=== PATIENT | male | born 1950 | race Caucasian/White ===

== ENCOUNTER 2020-12-31 14:11 | Outpatient (CLI) | payer MEDICARE, OTHER | END 2020-12-31 14:12 | disposition home or self-care (01) | LOC: COV 14:11 | PROVIDERS: ATTEND Family Medicine | DX: Z20.822 Contact with and (suspected) exposure to COVID-19 (principal) ==

== ENCOUNTER 2021-09-05 10:18 | Emergency (ER) | payer MEDICARE ==
[2021-09-05 11:36] LABS: BASOPHILS # (AUTO) 0.1 10^3/uL (0.0-0.1); BASOPHILS % (AUTO) 0.6 %; EOSINOPHILS # (AUTO) 0.1 10^3/uL (0.0-0.7); EOSINOPHILS % (AUTO) 1.2 %; HCT - HEMATOCRIT 38.3 % (42.0-52.0); HGB - HEMOGLOBIN 12.6 g/dL (14.0-18.0); LYMPHOCYTES # (AUTO) 1.2 10^3/uL (1.5-3.5); LYMPHOCYTES % (AUTO) 13.8 %; MEAN CORPUSCULAR HEMOGLOBIN 31.5 pg (27.0-31.0); MEAN CORPUSCULAR HGB CONC 32.9 g/dL (32.0-36.0); MEAN CORPUSCULAR VOLUME 95.8 fL (80.0-94.0); MEAN PLATELET VOLUME 9.4 fL (7.4-11.4); MONOCYTES # (AUTO) 0.8 10^3/uL (0.0-1.0); MONOCYTES % (AUTO) 9.3 %; NEUTROPHILS # (AUTO) 6.5 10^3/uL (1.5-6.6); NEUTROPHILS % (AUTO) 73.4 %; PLT - PLATELET COUNT 231 10^3/uL (130-450); RED CELL DISTRIBUTION WIDTH 13.7 % (12.0-15.0); WHITE BLOOD COUNT 8.8 x10^3/uL (4.8-10.8)
[2021-09-05 11:49] LABS: LACTIC ACID, VENOUS 2.6 mmol/L (0.5-2.2)
[2021-09-05 11:51] LABS: ALBUMIN 3.2 g/dL (3.2-5.5); ALBUMIN/GLOBULIN RATIO 0.7 (1.0-2.2); BILIRUBIN,TOTAL 0.6 mg/dL (0.2-1.0); CALCIUM 9.4 mg/dL (8.5-10.3); CREATININE 0.7 mg/dL (0.6-1.2); POTASSIUM 4.5 mmol/L (3.5-5.0)
--- NOTE | 2021-09-05 12:30 | XRAY Report ---
PROCEDURE: Chest 1 View X-Ray INDICATIONS: chest pain TECHNIQUE: One view of the chest was acquired. COMPARISON: None. FINDINGS: Surgical changes and devices: A cardiac pacemaker is seen with pulse generator in the left chest. St ernotomy wires and mediastinal clips are present. Lungs and pleura: No pleural effusions or pneumothorax. Lungs are clear. Mediastinum: Mediastinal contours appear normal. Heart size is enlarged. Bones and chest wall: No suspicious bony lesions. Overlying soft tissues appear unremarkable. IMPRESSION: No acute cardiopulmonary abnormality. Reviewed by: Josafat Hernandez MD on 09/05/2021 12:28 PM PDT Approved by: Josafat Hernandez MD on 09/05/2021 12:28 PM PDT Station ID: [id number]
[2021-09-05] MEDS ORDERED: SODIUM CHLORIDE 0.9% 1,000 ML IV STA (13:25)
[2021-09-05 13:37] VITALS: BP 118/86
--- NOTE | 2021-09-05 13:46 | ED Physician Documentation ---
History of Present Illness - Stated complaint Stated Complaint: CELLULITIS - Chief complaint Chief Complaint: Ext Problem - Additonal information Additional information: 71-year-old male presents emergency department for reevaluation of a left lower leg cellulitis. He reports that he developed a sore on his perez after river rafting and developed fairly significant lower extremity erythema induration and pain. He went to an emergency department at [facility] on 27 August and was started on doxycycline and Augmentin. He is on day 9 of these antibiotics. Over the last 48 hours he has developed some superficial blisters draining serous fluid around to the ankle and just below the knee. He reports that the erythema swelling and induration including pain is markedly improved but when he told his doctor about the blisters he was told to come to the emergency department. He denies any fevers. Past medical history is most significant for hypertension, coronary artery disease and aortic valve repair. He is anticoagulated on Eliquis. He is mildly dyspneic at baseline but reports that this is unchanged. He is denying any chest pain. Review of Systems Constitutional: denies: Fever, Chills Eyes: reports: Reviewed and negative Nose: reports: Reviewed and negative Throat: reports: Reviewed and negative Cardiac: reports: Reviewed and negative Respiratory: reports: Reviewed and negative GI: reports: Reviewed and negative : reports: Reviewed and negative Skin: reports: Lesions (Cellulitis left lower extremity) Musculoskeletal: reports: Reviewed and negative Neurologic: reports: Reviewed and negative Psychiatric: reports: Reviewed and negative Endocrine: reports: Reviewed and negative PD PAST MEDICAL HISTORY - Past Medical History Cardiovascular: Deep vein thrombosis, Pulmonary embolism - Allergies Allergies/Adverse Reactions: Allergies Allergy/AdvReac Type Severity Reaction Status Date / Time Sulfa (Sulfonamide Allergy Nausea Verified 09/05/21 10:41 Antibiotics) - Social History Does the pt have substance abuse?: No PD ED PE NORMAL - General General: Alert and oriented X 3, No acute distress, Well developed/nourished - HEENT HEENT: Atraumatic, Moist mucous membranes - Neck Neck: Supple, no meningeal sign - Cardiac Cardiac: RRR. No: No murmur (Systolic murmur 3 of 6) - Respiratory Respiratory: No respiratory distress, Clear bilaterally - Abdomen Abdomen: Normal bowel sounds, Soft - Back Back: No CVA TTP, No spinal TTP - Derm Derm: Other (Swelling of the left lower extrema with induration. Superficial blistering just below the knee and on bilateral met Sherrard's that is draining clear serous fluid. No tenderness to the posterior calf. In comparison to photos obtained from August 27 this extremity appears markedly Improved) Results - Vitals Vitals: Vital Signs - 24 hr 09/05/21 09/05/21 09/05/21 10:35 10:41 13:30 Temperature 36.6 C 36.6 C Heart Rate 69 69 68 Respiratory 32 H 32 H 20 Rate Blood Pressure 108/70 108/70 118/86 H O2 Saturation 97 97 99 Oxygen O2 Source Room air - Labs Labs: Laboratory Tests 09/05/21 09/05/21 09/05/21 11:31 11:31 11:31 WBC 8.8 RBC 4.00 L Hgb 12.6 L Hct 38.3 L MCV 95.8 H MCH 31.5 H MCHC 32.9 RDW 13.7 Plt Count 231 MPV 9.4 Neut # (Auto) 6.5 Lymph # (Auto) 1.2 L Daggett # (Auto) 0.8 Eos # (Auto) 0.1 Baso # (Auto) 0.1 Absolute Nucleated RBC 0.00 Nucleated RBC % 0.0 Sodium 136 Potassium 4.5 Chloride 102 Carbon Dioxide 26 Anion Gap 8.0 BUN 19 Creatinine 0.7 Estimated GFR (MDRD) 112 Glucose 152 H Lactic Acid 2.6 H Calcium 9.4 Total Bilirubin 0.6 AST 26 ALT 37 Alkaline Phosphatase 57 B-Natriuretic Peptide Total Protein 8.0 Albumin 3.2 Globulin 4.8 H Albumin/Globulin Ratio 0.7 L Procalcitonin 09/05/21 09/05/21 11:31 11:31 WBC RBC Hgb Hct MCV MCH MCHC RDW Plt Count MPV Neut # (Auto) Lymph # (Auto) Daggett # (Auto) Eos # (Auto) Baso # (Auto) Absolute Nucleated RBC Nucleated RBC % Sodium Potassium Chloride Carbon Dioxide Anion Gap BUN Creatinine Estimated GFR (MDRD) Glucose Lactic Acid Calcium Total Bilirubin AST ALT Alkaline Phosphatase B-Natriuretic Peptide 165 H Total Protein Albumin Globulin Albumin/Globulin Ratio Procalcitonin 0.09 - Rads (name of study) cxr Radiology: Final report received (No acute cardiopulmonary abnormality) PD MEDICAL DECISION MAKING - ED course Complexity details: reviewed results, re-evaluated patient, considered differential, d/w patient ED course: This is a very well-appearing 71-year-old male that has a history most significant for aortic valve repair, coronary artery disease and hypertension who is anticoagulated on Eliquis. He began treatment for left lower extremity cellulitis 9 days ago. He is currently on doxycycline and Augmentin. Over the last 48 hours he has developed some superficial blistering just below his knee and on bilateral malleolus that is draining serous fluid. I am able to compare this extremity with photos on the patient's cell phone obtained from August 27. The cellulitis appears markedly improved. Impact the patient reports that he feels better. He has no fevers or pain. It was the reported blistering that he discussed with his doctor that prompted the ER visit. He does have some dependent edema in this leg and I have advised him to elevate the leg as much as possible at night. However given the anterior improved appearance of the cellulitis will not change the antibiotics today. In addition to this his screening labs showed no leukocytosis. His procalcitonin is not elevated. I have encouraged him to gently wash the blisters at home with a clean washcloth and apply the mupirocin ointment that he has. We discussed that given how extensive the cellulitis was it will likely take a number of weeks for the full natural color to return to his legs as well as to have improved swelling. He is comfortable with this plan. We will continue close follow-up with her primary care provider. Departure - Departure Disposition: 01 Home, Self Care Clinical Impression: Lower extremity cellulitis Qualifiers: Laterality: left Qualified Code(s): L03.116 - Cellulitis of left lower limb Condition: Stable Record reviewed to determine appropriate education?: Yes Instructions: Cellulitis Dc Comments: Catracho you are seen today in the emergency department for repeat evaluation of the cellulitis on your lower extremity. I am able to compare your leg today to the photos on your cell phone and we both agree that the infection is markedly improved. You have developed some superficial blisters that are due to the edema in the leg. I encourage you to gently wash these with a clean washcloth at home and then apply the mupirocin ointment. You are encouraged to elevate your lower extremity as much as you can at night. This will help with the edema and also improve the discoloration of the leg. If at any point you feel that your symptoms are not improving, please return to the emergency department but complete the full course of the Augmentin and doxycycline. We did do screening labs today that showed no worrisome abnormalities such as an elevated white blood cell count. A lab called procalcitonin was also normal.
== END 2021-09-05 13:56 | disposition home or self-care (01) ==
LOC: ED 10:18
DX: L03.116 Cellulitis of left lower limb (principal)
CPT/HCPCS: 36415; 80053; 83605; 83880; 84145; 85025; 87040; 99283; 99284

== ENCOUNTER 2023-11-19 13:16 | Outpatient (CLI) | payer MEDICARE ==
[2023-11-19 13:48] LABS: ALBUMIN 4.4 g/dL (3.2-5.5); ALBUMIN/GLOBULIN RATIO 1.7 (1.0-2.2); BILIRUBIN,TOTAL 1.3 mg/dL (0.2-1.0); CREATININE 0.9 mg/dL (0.6-1.3); POTASSIUM 4.7 mmol/L (3.5-4.5)
== END 2023-11-19 13:17 | disposition home or self-care (01) ==
LOC: LAB 13:16
DX: R10.11 Right upper quadrant pain (principal)
CPT/HCPCS: 36415; 80053